=== PATIENT | female | born 1985 | race Two or more races ===

== ENCOUNTER → 2019-03-31 | Outpatient (CLI) | payer OTHER | END | disposition home or self-care (01) | LOC: PRENATAL 13:00 | DX: O36.5910 Maternal care for other known or suspected poor fetal growth, first trimester, not applicable or unspecified (principal); Z36.82 Encounter for antenatal screening for nuchal translucency; O36.80X1 Pregnancy with inconclusive fetal viability, fetus 1 ==

== ENCOUNTER 2019-09-15 14:30 | Inpatient (IN) | payer OTHER ==
[~2019-09-15] VITALS: Ht 162.6 cm; Wt 72.6 kg
[2019-09-28] MEDS ORDERED: LEVOTHYROXINE25 MCG PO (12:47)
[2019-09-28] MEDS ORDERED: PRENATAL TABLE1 EAC3 PO (12:48)
== END 2019-09-30 14:26 | disposition home or self-care (01) | DRG 807 ==
LOC: ADM 14:30 → EDSTATUS 14:30 → LDR 09-28 12:29 → OB/GYN 09-28 12:29 → LDR 10-01 14:30
PROVIDERS: ADMIT Obstetrics & Gynecology; ATTEND Obstetrics & Gynecology
PROC: 10E0XZZ Delivery of Products of Conception, External Approach (ICD-10-PCS; principal; 2019-09-28)
PROC: 10907ZC Drainage of Amniotic Fluid, Therapeutic from Products of Conception, Via Natural or Artificial Opening (ICD-10-PCS; 2019-09-28)
PROC: 3E033VJ Introduction of Other Hormone into Peripheral Vein, Percutaneous Approach (ICD-10-PCS; 2019-09-28)
PROC: 4A1HXCZ Monitoring of Products of Conception, Cardiac Rate, External Approach (ICD-10-PCS; 2019-09-28)
DX: O80 Encounter for full-term uncomplicated delivery (principal); Z37.0 Single live birth; Z3A.39 39 weeks gestation of pregnancy; Z20.828 Contact with and (suspected) exposure to other viral communicable diseases